=== PATIENT | female | born 1945 | race Caucasian/White ===

== ENCOUNTER 2021-07-15 10:16 | Inpatient (IN) | payer BC, OTHER ==
[2021-07-15 12:05] LABS: BASO % 0.5 % (0-2.0); EOS % 0.3 % (0-4.5); HEMATOCRIT 38.3 % (32.4-45.2); LYMPH % 17.7 % (8-40); MCH 31.5 pg (25.7-33.7); MEAN CELL VOLUME 92.6 fl (80-96); MEAN PLT VOLUME 9.4 fl (7.5-11.1); MONO % 5.2 % (3.8-10.2); NEUT % 76.3 % (42.8-82.8); PLATELET COUNT 225 10^3/uL (134-434); RBC 4.14 M/mm3 (3.60-5.2); RDW 14.7 % (11.6-15.6); WHITE BLOOD COUNT 7.6 K/mm3 (4.0-10.0)
[2021-07-15 12:33] LABS: CHLORIDE 103 mmol/L (98-107); SODIUM 140 mmol/L (136-145)
[2021-07-15 12:35] LABS: ALBUMIN 3.6 g/dl (3.4-5.0); ANION GAP 7 MMOL/L (8-16); BLOOD UREA NITROGEN 19.1 mg/dL (7-18); CO2 30 mmol/L (21-32); GLUCOSE,RANDOM 95 mg/dL (74-106)
[2021-07-15 12:38] LABS: CREATININE 1.1 mg/dL (0.55-1.3); SGOT/AST 22 U/L (15-37); SGPT/ALT 25 U/L (13-61)
[2021-07-15 12:40] LABS: BILIRUBIN,TOTAL 0.4 mg/dL (0.2-1); TOT PROT 7.6 g/dl (6.4-8.2)
[2021-07-15 12:41] LABS: ALK PHOS 58 U/L (45-117)
[2021-07-15] MEDS ORDERED: POTASSIUM CHLORIDE TABS 10 MEQ TABLET.ER (FP) PO ONE (15:29)
[2021-07-15] MEDS ORDERED: POTASSIUM CHLORIDE TABS 10 MEQ TABLET.ER (FP) ONE (16:19)
[2021-07-15 17:44] LABS: CHOLESTEROL 130 mg/dL (50-200); TRIGLYCERIDES 124 mg/dL (0-150)
[2021-07-15 17:45] LABS: LDL CHOLESTEROL (ONLY SJRH) 83 mg/dL (5-100)
[2021-07-15 17:47] LABS: HDL CHOLESTEROL 34 mg/dL (40-60)
[2021-07-15] MEDS ORDERED: HEPARIN NA (PORCINE) 5,000 UNITS/ML 1ML VIAL ONE (22:03)
[2021-07-15] MEDS: ROSUVASTATIN CA 10 MG TABLET (FP) PO SCH (22:29)
[2021-07-15] MEDS: HEPARIN NA (PORCINE) 5,000 UNITS/ML 1ML VIAL SQ SCH (22:29)
[2021-07-16] MEDS ORDERED: ALPRAZolam 1 MG TABLET ONE (00:27)
[2021-07-16] MEDS: ALPRAZolam 0.25 MG TABLET PO PRN ×2 (00:31→22:52)
[2021-07-16 06:58] LABS: BASO % 0.4 % (0-2.0); EOS % 0.6 % (0-4.5); HEMATOCRIT 35.3 % (32.4-45.2); HEMOGLOBIN 12.1 GM/dL (10.7-15.3); LYMPH % 31.5 % (8-40); MCH 31.4 pg (25.7-33.7); MCHC 34.4 g/dl (32.0-36.0); MEAN CELL VOLUME 91.5 fl (80-96); MEAN PLT VOLUME 9.3 fl (7.5-11.1); MONO % 6.9 % (3.8-10.2); NEUT % 60.6 % (42.8-82.8); PLATELET COUNT 206 10^3/uL (134-434); RBC 3.86 M/mm3 (3.60-5.2); WHITE BLOOD COUNT 6.7 K/mm3 (4.0-10.0)
[2021-07-16 07:15] LABS: CHLORIDE 109 mmol/L (98-107); SODIUM 142 mmol/L (136-145)
[2021-07-16 07:22] LABS: CALCIUM 9.1 mg/dL (8.5-10.1)
[2021-07-16 07:23] LABS: ALBUMIN 3.3 g/dl (3.4-5.0); ANION GAP 8 MMOL/L (8-16); BLOOD UREA NITROGEN 19.2 mg/dL (7-18); CO2 26 mmol/L (21-32); GLUCOSE,RANDOM 77 mg/dL (74-106)
[2021-07-16 07:26] LABS: SGOT/AST 21 U/L (15-37); SGPT/ALT 23 U/L (13-61)
[2021-07-16 07:27] LABS: BILIRUBIN,TOTAL 0.4 mg/dL (0.2-1); TOT PROT 6.9 g/dl (6.4-8.2)
[2021-07-16 07:28] LABS: ALK PHOS 52 U/L (45-117)
[2021-07-16] MEDS ORDERED: REGADENOSON 0.4 MG/5 ML PRE-FILLED SYRINGE IVPUSH ONE ×2 (10:30→10:45)
[2021-07-16] MEDS ORDERED: ASPIRIN 81 MG CHEWABLE TABLETS ONE (12:54)
[2021-07-16] MEDS ORDERED: LOSARTAN POTASSIUM 50 MG TABLET ONE (12:55)
[2021-07-16] MEDS ORDERED: HEPARIN NA (PORCINE) 5,000 UNITS/ML 1ML VIAL ONE (12:55)
[2021-07-16] MEDS ORDERED: FOLIC ACID 1 MG TABLET (FP) ONE (12:55)
[2021-07-16] MEDS: HEPARIN NA (PORCINE) 5,000 UNITS/ML 1ML VIAL SQ SCH ×2 (13:14→23:31)
[2021-07-16] MEDS: ASPIRIN 81 MG CHEWABLE TABLETS PO SCH (13:14)
[2021-07-16] MEDS: LOSARTAN POTASSIUM 50 MG TABLET PO SCH (13:14)
[2021-07-16] MEDS: HYDROCHLOROTHIAZIDE 12.5 MG CAPSULE (FP) PO SCH (13:15)
[2021-07-16] MEDS: FOLIC ACID 1 MG TABLET (FP) PO SCH (13:15)
[2021-07-16] MEDS: ROSUVASTATIN CA 10 MG TABLET (FP) PO SCH (22:52)
[2021-07-17 01:01] VITALS: BMI 29.8
[2021-07-17] MEDS: HYDROCHLOROTHIAZIDE 12.5 MG CAPSULE (FP) PO SCH (11:38)
[2021-07-17] MEDS: ASPIRIN 81 MG CHEWABLE TABLETS PO SCH (11:38)
[2021-07-17] MEDS: FOLIC ACID 1 MG TABLET (FP) PO SCH (11:39)
[2021-07-17] MEDS: HEPARIN NA (PORCINE) 5,000 UNITS/ML 1ML VIAL SQ SCH ×2 (11:39→21:26)
[2021-07-17] MEDS: FLUTICASONE PROP 0.05% 16 GM NASAL SPRAY NS SCH ×2 (11:39→22:00)
[2021-07-17] MEDS: LOSARTAN POTASSIUM 50 MG TABLET PO SCH (11:39)
[2021-07-17] MEDS: ACETAMINOPHEN 500 MG TABLET (FP) PO PRN (11:40)
[2021-07-17] MEDS: ALPRAZolam 0.25 MG TABLET PO PRN (21:26)
[2021-07-17] MEDS: ROSUVASTATIN CA 10 MG TABLET (FP) PO SCH (22:00)
[2021-07-18] MEDS: ACETAMINOPHEN 500 MG TABLET (FP) PO PRN (10:36)
[2021-07-18] MEDS: ASPIRIN 81 MG CHEWABLE TABLETS PO SCH (10:36)
[2021-07-18] MEDS: LOSARTAN POTASSIUM 50 MG TABLET PO SCH (10:37)
[2021-07-18] MEDS: HYDROCHLOROTHIAZIDE 12.5 MG CAPSULE (FP) PO SCH (10:37)
[2021-07-18] MEDS: FOLIC ACID 1 MG TABLET (FP) PO SCH (10:38)
[2021-07-18] MEDS: HEPARIN NA (PORCINE) 5,000 UNITS/ML 1ML VIAL SQ SCH ×2 (10:38→22:50)
[2021-07-18] MEDS: FLUTICASONE PROP 0.05% 16 GM NASAL SPRAY NS SCH ×2 (10:39→22:51)
[2021-07-18] MEDS: ROSUVASTATIN CA 10 MG TABLET (FP) PO SCH (22:50)
[2021-07-18] MEDS: ALPRAZolam 0.25 MG TABLET PO PRN (22:50)
[2021-07-19] MEDS: LOSARTAN POTASSIUM 50 MG TABLET PO SCH (10:42)
[2021-07-19] MEDS: HEPARIN NA (PORCINE) 5,000 UNITS/ML 1ML VIAL SQ SCH ×2 (10:42→22:39)
[2021-07-19] MEDS: HYDROCHLOROTHIAZIDE 12.5 MG CAPSULE (FP) PO SCH (10:42)
[2021-07-19] MEDS: ASPIRIN 81 MG CHEWABLE TABLETS PO SCH (10:42)
[2021-07-19] MEDS: FOLIC ACID 1 MG TABLET (FP) PO SCH (10:42)
[2021-07-19] MEDS: FLUTICASONE PROP 0.05% 16 GM NASAL SPRAY NS SCH ×2 (10:51→22:43)
[2021-07-19] MEDS: ROSUVASTATIN CA 10 MG TABLET (FP) PO SCH (22:39)
[2021-07-19] MEDS: ALPRAZolam 0.25 MG TABLET PO PRN (22:39)
[2021-07-20] MEDS: ACETAMINOPHEN 500 MG TABLET (FP) PO PRN (06:16)
[2021-07-20] MEDS: LOSARTAN POTASSIUM 50 MG TABLET PO SCH (09:29)
[2021-07-20] MEDS: HEPARIN NA (PORCINE) 5,000 UNITS/ML 1ML VIAL SQ SCH ×2 (09:29→22:51)
[2021-07-20] MEDS: HYDROCHLOROTHIAZIDE 12.5 MG CAPSULE (FP) PO SCH (09:29)
[2021-07-20] MEDS: FOLIC ACID 1 MG TABLET (FP) PO SCH (09:29)
[2021-07-20] MEDS: FLUTICASONE PROP 0.05% 16 GM NASAL SPRAY NS SCH ×2 (09:30→22:59)
[2021-07-20] MEDS: HYDROCORTISONE 2.5% TOPICAL CREAM 30 GM TUBE TP SCH ×2 (11:27→22:52)
[2021-07-20] MEDS: ROSUVASTATIN CA 10 MG TABLET (FP) PO SCH (22:51)
[2021-07-20] MEDS: ALPRAZolam 0.25 MG TABLET PO PRN (22:52)
[2021-07-21] MEDS: HYDROCHLOROTHIAZIDE 12.5 MG CAPSULE (FP) PO SCH (10:08)
[2021-07-21] MEDS: FOLIC ACID 1 MG TABLET (FP) PO SCH (10:08)
[2021-07-21] MEDS: LOSARTAN POTASSIUM 50 MG TABLET PO SCH (10:08)
[2021-07-21] MEDS: HYDROCORTISONE 2.5% TOPICAL CREAM 30 GM TUBE TP SCH ×2 (10:09→22:36)
[2021-07-21] MEDS: HEPARIN NA (PORCINE) 5,000 UNITS/ML 1ML VIAL SQ SCH ×2 (10:09→22:31)
[2021-07-21] MEDS: FLUTICASONE PROP 0.05% 16 GM NASAL SPRAY NS SCH ×2 (10:09→22:36)
[2021-07-21] MEDS: ALPRAZolam 0.25 MG TABLET PO PRN (22:31)
[2021-07-21] MEDS: ROSUVASTATIN CA 10 MG TABLET (FP) PO SCH (22:31)
[2021-07-22] MEDS: FLUTICASONE PROP 0.05% 16 GM NASAL SPRAY NS SCH ×2 (09:29→21:10)
[2021-07-22] MEDS: HEPARIN NA (PORCINE) 5,000 UNITS/ML 1ML VIAL SQ SCH (09:30)
[2021-07-22] MEDS: LOSARTAN POTASSIUM 50 MG TABLET PO SCH (09:30)
[2021-07-22] MEDS: FOLIC ACID 1 MG TABLET (FP) PO SCH (09:30)
[2021-07-22] MEDS: HYDROCHLOROTHIAZIDE 12.5 MG CAPSULE (FP) PO SCH (09:30)
[2021-07-22] MEDS: HYDROCORTISONE 2.5% TOPICAL CREAM 30 GM TUBE TP SCH ×2 (09:34→21:09)
[2021-07-22] MEDS ORDERED: PT OWN MED DRAWER 7, Y5N ONE (12:03)
[2021-07-22] MEDS: ACETAMINOPHEN 500 MG TABLET (FP) PO PRN (13:33)
[2021-07-22] MEDS: ROSUVASTATIN CA 10 MG TABLET (FP) PO SCH (21:08)
[2021-07-22] MEDS ORDERED: ZOLPIDEM TARTRATE 5 MG TABLET PO PRN (22:00)
[2021-07-23] MEDS: LOSARTAN POTASSIUM 50 MG TABLET PO SCH (09:25)
[2021-07-23] MEDS: FOLIC ACID 1 MG TABLET (FP) PO SCH (09:25)
[2021-07-23] MEDS: FLUTICASONE PROP 0.05% 16 GM NASAL SPRAY NS SCH ×2 (09:26→21:16)
[2021-07-23] MEDS: HYDROCORTISONE 2.5% TOPICAL CREAM 30 GM TUBE TP SCH ×2 (09:26→21:16)
[2021-07-23] MEDS: HYDROCHLOROTHIAZIDE 12.5 MG CAPSULE (FP) PO SCH (09:28)
[2021-07-23] MEDS ORDERED: MIDAZOLAM HCL 2 MG/2 ML SINGLE DOSE VIAL ONE (12:58)
[2021-07-23] MEDS ORDERED: LIDOCAINE HCL/PF 2% SDV 5ML VIAL ONE ×2 (12:58→12:59)
[2021-07-23] MEDS ORDERED: GLYCOPYRROLATE 0.2 MG/1 ML VIAL ONE (12:59)
[2021-07-23] MEDS ORDERED: SUCCINYLCHOLINE CHLORIDE 200 MG/10 ML SYRINGE ONE (13:09)
[2021-07-23] MEDS ORDERED: ACETAMINOPHEN 500 MG TABLET (FP) PO PRN (15:04)
[2021-07-23] MEDS ORDERED: ZOLPIDEM TARTRATE 5 MG TABLET PO PRN (15:04)
[2021-07-23] MEDS ORDERED: PT OWN MED DRAWER 7, Y5N ONE (17:43)
[2021-07-23] MEDS ORDERED: ROSUVASTATIN CA 10 MG TABLET (FP) PO SCH (22:00)
[2021-07-24] MEDS: HYDROCORTISONE 2.5% TOPICAL CREAM 30 GM TUBE TP SCH (09:07)
[2021-07-24] MEDS: FLUTICASONE PROP 0.05% 16 GM NASAL SPRAY NS SCH ×2 (09:08→09:11)
[2021-07-24] MEDS ORDERED: HYDROCHLOROTHIAZIDE 12.5 MG CAPSULE (FP) PO SCH (10:00)
[2021-07-24] MEDS ORDERED: MULTIVITAMINS (DAILY MVI) TABLET (FP) PO SCH (10:00)
[2021-07-24] MEDS ORDERED: FOLIC ACID 1 MG TABLET (FP) PO SCH (10:00)
[2021-07-24] MEDS ORDERED: LOSARTAN POTASSIUM 50 MG TABLET PO SCH (10:00)
[2021-07-24 15:51] VITALS: BP 124/74; PULSE 86; TEMP 98.4
== END 2021-07-24 16:05 | disposition home or self-care (01) | DRG 68 ==
LOC: JER 10:16 → JERBED 13:28 → J4W 07-16 22:27
PROVIDERS: ADMIT Family Medicine; ATTEND Family Medicine
PROC: 0BJ08ZZ Inspection of Tracheobronchial Tree, Via Natural or Artificial Opening Endoscopic (ICD-10-PCS; 2021-07-23)
PROC: 0BB88ZX Excision of Left Upper Lobe Bronchus, Via Natural or Artificial Opening Endoscopic, Diagnostic (ICD-10-PCS; principal; 2021-07-23 13:00)
DX: I65.29 Occlusion and stenosis of unspecified carotid artery (principal); R42 Dizziness and giddiness; E78.5 Hyperlipidemia, unspecified; I10 Essential (primary) hypertension; R20.0 Anesthesia of skin; F41.9 Anxiety disorder, unspecified; R91.8 Other nonspecific abnormal finding of lung field
CPT/HCPCS: 36415; 70450-TC; 70498-TC; 70551-TC; 71046-TC-FY; 71260-TC; 78452-TC; 80053; 80061; 82550; 83036; 84443; 84484; 85025; 87070; 87102; 87116; 87205; 87206; 87210; 88305-TC; 88341-TC; 93005; 93010; 93017; 93306-TC; 94760; 97116-GP; 97161-GP; 99285-25; A9502; C1887; C9803; J1644; J2785; Q9967; U0003; U0005